=== PATIENT | female | born 1995 | race Caucasian/White ===

== ENCOUNTER 2024-04-17 00:20 | Inpatient (IN) | payer BC, SELFPAY ==
[2024-04-17 00:32] VITALS: BP 111/67; BMI 28.4
[2024-04-17 01:08] LABS: % Basophils 0.3 % (0-2); % Eosinophils 0.6 % (0-6); % Immature Granulocytes 0.8 % (0-0.5); % Lymphocytes 22.8 % (20.5-51.1); % Monocytes 6.8 % (1.7-9.3); % Neutrophils 68.7 % (42.2-75.2); Absolute Basophils 0.1 10^3/uL (0-0.2); Absolute Eosinophils 0.1 10^3/uL (0-0.7); Absolute Immature Granulocytes 0.1 10^3/uL (0-0.05); Absolute Lymphocytes 3.3 10^3/uL (1.2-3.4); Hematocrit 32.2 % (37.0-47.0); Hemoglobin 11.3 g/dL (12.0-16.0); Mean Corp Hgb Conc. 35.1 g/dL (33.0-37.0); Mean Corpuscular Hgb 30.1 pg (27.0-31.0); Mean Corpuscular Volume 85.9 fL (81.0-99.0); Mean Platelet Volume 9.9 fL (7.4-10.4); Nucleated Red Blood Cells % 0 %; Platelet Count 229 10^3/uL (130-400); Red Blood Cell Count 3.75 10^6/uL (4.20-5.40); Red Cell Dist. Width 13.7 % (11.5-14.5); White Blood Cell Count 14.6 10^3/uL (4.8-10.8)
[2024-04-17] MEDS: FENTANYL/BUPIVACAINE 100 EPIDURAL (01:34)
[2024-04-17] MEDS: SUBLIMAZE 100 MCG EPIDURAL (01:34)
[2024-04-17 06:19] LABS: Amphetamines Negative (Negative); Barbiturates Negative (Negative); Benzodiazepines Negative (Negative); Buprenorphine Negative (Negative); Cocaine Negative (Negative); Marijuana Negative (Negative); Methadone Negative (Negative); Methamphetamines Negative (Negative); Opiates Negative (Negative); Phencyclidine Negative (Negative); Tricyclic Antidepressants Negative (Negative)
[2024-04-17] MEDS: MOTRIN 600 MG PO ×2 (09:18→19:45)
[2024-04-17] MEDS: METHERGINE INJECTION 0.200000000000000011 MG IM (09:19)
[2024-04-18] MEDS: MOTRIN 600 MG PO ×3 (04:44→20:38)
[2024-04-18 05:11] LABS: Hematocrit 32.8 % (37.0-47.0); Hemoglobin 10.8 g/dL (12.0-16.0)
[2024-04-21 16:24] LABS: Syphilis/T. pallidum Ab Reflex Negative (Negative)
== END 2024-04-19 11:45 | disposition home or self-care (01) | DRG 806 ==
LOC: LDRP 00:20
PROVIDERS: Obstetrics & Gynecology; ADMITTING PHYSICIAN Obstetrics & Gynecology
PROC: 10E0XZZ Delivery of Products of Conception, External Approach (ICD-10-PCS; 2024-04-17)
DX: O48.0 Post-term pregnancy (principal); O72.1 Other immediate postpartum hemorrhage; Z37.0 Single live birth; O98.32 Other infections with a predominantly sexual mode of transmission complicating childbirth; Z3A.40 40 weeks gestation of pregnancy; O70.0 First degree perineal laceration during delivery; O42.02 Full-term premature rupture of membranes, onset of labor within 24 hours of rupture; Z86.19 Personal history of other infectious and parasitic diseases; Z28.310 Unvaccinated for COVID-19; F19.11 Other psychoactive substance abuse, in remission
CPT/HCPCS: 36415; 80306; 85014; 85018; 85025; 86780; 86850; 86900; 86901; 93971